=== PATIENT | male | born 1990 | race American Indian/Alaskan Native ===

== ENCOUNTER 2018-10-31 16:18 | Emergency (ER) | payer OTHER ==
[2018-10-31] MEDS ORDERED: IBUPROFEN PO ONE (16:24)
[2018-10-31 16:28] VITALS: BP 108/71
--- NOTE | 2018-10-31 16:30 | Event Note ---
ED Screening Note ED Screening Note: SP GLF YESTERDAY WAKING UP TODAY WITH R RIB PAIN RX MH MEDS PMH SCHIZO THC ETOH CIG VSS NAD This initial assessment/diagnostic orders/clinical plan/treatment(s) is/are subject to change based on patients health status, clinical progression and re- assessment by fellow clinical providers in the ED. Further treatment and workup at subsequent clinical providers discretion. Patient/guardian urged not to elope from the ED as their condition may be serious if not clinically assessed and managed. Initial orders include:
--- NOTE | 2018-10-31 17:13 | XRay Report ---
PROCEDURE: XR RIBS UNI W PA CHEST 3+V RT TECHNIQUE: PA view of the chest and 4 views of the right ribs HISTORY: PAIN in the right chest COMPARISONS: None . FINDINGS: There is no evidence for acute rib fracture or other bony pathologic abnormality in the right ribs. On the chest film, the lungs are clear without evidence for infiltrate, effusion, or pneumothorax. Th e cardiomediastinal silhouette is normal. IMPRESSION: No acute abnormality in the right ribs or chest. This document is electronically signed by Autumn Todd MD., October 31 2018 05:11:58 PM ET
--- NOTE | 2018-10-31 17:29 | Emergency Department Report ---
ED Fall HPI - General Chief Complaint: Fall Stated Complaint: BACK PAIN Time Seen by Provider: 10/31/18 16:23 Source: patient Mode of arrival: Ambulatory - History of Present Illness Initial Comments: Pt is a 28 yo male who presents to the ED with c/o right sided rib pain that began last night. He states that he fell down the inside steps approximately 4 steps and landed on his right ribs. he states movements and deep breaths worsens his pain. he does not report any other injury, LOC, CENTENO, SOB. PMHx of bipolar and schizophrenia. no allergies to meds. - Related Data Previous Rx's Medication Instructions Recorded Last Taken Type Ibuprofen [Motrin 800 MG tab] 800 mg PO Q8HR PRN #14 tablet 10/31/18 Unknown Rx Allergies Allergy/AdvReac Type Severity Reaction Status Date / Time iodine Allergy Swelling Verified 10/31/18 16:19 ED Review of Systems ROS: Stated complaint: BACK PAIN Other details as noted in HPI Comment: All other systems reviewed and negative ED Past Medical Hx - Past Medical History Hx Psychiatric Treatment: Yes Hx Asthma: Yes - Surgical History Past Surgical History?: No - Social History Smoking Status: Current Every Day Smoker Substance Use Type: Marijuana - Medications Home Medications: Home Medications Medication Instructions Recorded Confirmed Last Taken Type Ibuprofen [Motrin 800 MG tab] 800 mg PO Q8HR PRN #14 tablet 10/31/18 Unknown Rx ED Physical Exam - General Limitations: No Limitations General appearance: alert, in no apparent distress - Head Head exam: Present: atraumatic, normocephalic - Eye Eye exam: Present: normal appearance, PERRL - ENT ENT exam: Present: mucous membranes moist - Respiratory Respiratory exam: Present: normal lung sounds bilaterally, other (right, lateral rib TTP, no ecchymosis, no creptius, no deformity ). Absent: respiratory distress, wheezes, rales, rhonchi, stridor, accessory muscle use, decreased breath sounds, prolonged expiratory - Cardiovascular Cardiovascular Exam: Present: regular rate, normal rhythm, normal heart sounds. Absent: systolic murmur, diastolic murmur, rubs, gallop - Neurological Exam Neurological exam: Present: alert, oriented X3, CN II-XII intact, normal gait. Absent: motor sensory deficit - Psychiatric Psychiatric exam: Present: normal affect, normal mood - Skin Skin exam: Present: warm, dry, intact ED Course Vital Signs 10/31/18 16:25 Temperature 96.6 F L Pulse Rate 58 L Respiratory 16 Rate Blood Pressure 108/71 O2 Sat by Pulse 98 Oximetry ED Medical Decision Making - Radiology Data Radiology results: report reviewed XR right ribs with chest: no acute process - Medical Decision Making Pt is a 28 yo male who presents to the ED with c/o right sided rib pain that began last night. He states that he fell down the inside steps approximately 4 steps and landed on his right ribs. he states movements and deep breaths worsens his pain. he does not report any other injury, LOC, CENTENO, SOB. PMHx of bipolar and schizophrenia. no allergies to meds. on examination right, lateral rib TTP, no ecchymosis, no creptius, no deformity. XR right ribs with chest: no acute process. vitals are normal. pt given anti-inflammatory for rib contusion. advised to please take medication as prescribed as needed. follow up with a primary care doctor in the next 2-3 days. return to the emergency room for any new or worsening symptoms. - Differential Diagnosis fx, sprain, strain, dislocation, contusion Critical care attestation.: If time is entered above; I have spent that time in minutes in the direct care of this critically ill patient, excluding procedure time. ED Disposition Clinical Impression: Rib contusion Qualifiers: Encounter type: initial encounter Laterality: right Qualified Code(s): S20.211A - Contusion of right front wall of thorax, initial encounter Disposition: DC-01 TO HOME OR SELFCARE Is pt being admited?: No Does the pt Need Aspirin: No Condition: Stable Instructions: Costochondritis (ED) Additional Instructions: Please take medication as prescribed as needed. follow up with a primary care doctor in the next 2-3 days. return to the emergency room for any new or worse kaleb symptoms. Prescriptions: Ibuprofen [Motrin 800 MG tab] 800 mg PO Q8HR PRN #14 tablet PRN Reason: Pain, Moderate (4-6) Referrals: [facility] [Provider Group] - 2-3 Days [facility] [Outside] - 2-3 Days Time of Disposition: 17:28 Print Language: TURKMEN
== END 2018-10-31 17:36 | disposition home or self-care (01) ==
LOC: ED 16:18
DX: S20.211A Contusion of right front wall of thorax, initial encounter (principal); J45.909 Unspecified asthma, uncomplicated; F12.10 Cannabis abuse, uncomplicated; F17.200 Nicotine dependence, unspecified, uncomplicated; Z88.6 Allergy status to analgesic agent; W10.9XXA Fall (on) (from) unspecified stairs and steps, initial encounter; Y93.89 Activity, other specified; Y92.89 Other specified places as the place of occurrence of the external cause; Y99.8 Other external cause status
CPT/HCPCS: 99283